=== PATIENT | male | born 1960 | race Caucasian/White ===

== ENCOUNTER 2022-05-27 06:14 | Day surgery (SDC) | payer OTHER ==
[2022-05-20 14:18] VITALS: BMI 28.5
[2022-05-27] MEDS ORDERED: PHENYLEPHRINE 2.5% OPTHALMIC DROP 2ML BOTTLE ONE (06:42)
[2022-05-27] MEDS ORDERED: TROPICAMIDE 1% OPHTH SOLN 15 ML BOTTLE ONE (06:42)
[2022-05-27] MEDS: PHENYLEPHRINE 2.5% OPHTH SOLN 15 ML BOTTLE OD SCH ×3 (07:00→07:10)
[2022-05-27] MEDS: OFLOXACIN 0.3% OPHTHALMIC SOLUTION 5 ML BOTTLE OD SCH ×3 (07:00→07:10)
[2022-05-27] MEDS: CYCLOPENTOLATE HCL 1% OPHTH SOLN 2 ML BOTTLE OD SCH ×3 (07:00→07:10)
[2022-05-27] MEDS: TROPICAMIDE 1% OPHTH SOLN 15 ML BOTTLE OD SCH ×3 (07:00→07:10)
[2022-05-27] MEDS: KETOROLAC TROMETHAMINE 0.5% EYE DROP 1 DROP DROPS OD SCH ×3 (07:00→07:10)
[2022-05-27] MEDS ORDERED: EPINEPHrine/PF 1 MG/1 ML (1:1,000) AMPULE ONE (07:09)
[2022-05-27] MEDS ORDERED: BETAXOLOL HCL 0.25% OPHTHALMIC 10 ML DROPSBTL ONE (07:09)
[2022-05-27] MEDS ORDERED: EPI-SHUGARCAINE (EPINEPHRINE 0.025% & LIDOCAINE-PF 0.75%) 4ML ONE (07:09)
[2022-05-27] MEDS ORDERED: BACITRACIN/POLYMYXIN OPH OINT 3.5 GM TUBE ONE (07:09)
[2022-05-27] MEDS ORDERED: PHENYLEPHRINE/KETOROLAC 4 ML VIAL IO ONE (07:09)
[2022-05-27] MEDS ORDERED: NEO/POLYMYX B SULF/DEXAMETH OPHTHALMIC 5ML BOTTLE ONE (07:10)
[2022-05-27] MEDS ORDERED: POVIDONE-IODINE 5% OPHTHALMIC PREP 30 ML SOLUTION ONE (07:10)
[2022-05-27] MEDS ORDERED: ACETYLCHOLINE 1:100 INTRA-OCUL 20 MG/2 ML KIT ONE (07:10)
[2022-05-27] MEDS ORDERED: TRYPAN BLUE 0.5 ML DISP.SYRIN ONE (07:10)
[2022-05-27] MEDS ORDERED: TETRACAINE 0.5% OPHTH SOLN 2 ML BOTTLE ONE (07:10)
[2022-05-27 07:17] VITALS: RESP 18
[2022-05-27] MEDS ORDERED: MIDAZOLAM HCL 2 MG/2 ML SINGLE DOSE VIAL ONE (07:56)
[2022-05-27] MEDS ORDERED: ACETAMINOPHEN 325 MG TABLET (FP) PO PRN (08:20)
[2022-05-27 08:30] VITALS: TEMP 97.7
[2022-05-27 08:49] VITALS: BP 140/80; PULSE 80
== END 2022-05-27 08:53 | disposition home or self-care (01) ==
LOC: FASU 06:14
PROVIDERS: ATTEND Ophthalmology
PROC: 08RJ3JZ Replacement of Right Lens with Synthetic Substitute, Percutaneous Approach (ICD-10-PCS; principal; 2022-05-27 08:01)
DX: H25.11 Age-related nuclear cataract, right eye (principal)
CPT/HCPCS: 66984; V2632; 82962; J1097

== ENCOUNTER → 2022-06-10 | Day surgery (SDC) | payer OTHER ==
[2022-06-05 09:21] VITALS: BMI 28.5
[~2022-06-10] MED LIST: ACETYLCHOLINE 1:100 INTRA-OCUL 20 MG/2 ML KIT ONE; BACITRACIN/POLYMYXIN OPH OINT 3.5 GM TUBE ONE; BETAXOLOL HCL 0.25% OPHTHALMIC 10 ML DROPSBTL ONE; BSS (NA/CA/MG/K) BALANCED SALT SOLUTION OPHTH SOLN 15 ML BOTTLE ONE; CYCLOPENTOLATE HCL 1% OPHTH SOLN 2 ML BOTTLE ONE; CYCLOPENTOLATE HCL 1% OPHTH SOLN 2 ML BOTTLE OS SCH; EPI-SHUGARCAINE (EPINEPHRINE 0.025% & LIDOCAINE-PF 0.75%) 4ML ONE; EPINEPHrine/PF 1 MG/1 ML (1:1,000) AMPULE ONE; KETOROLAC TROMETHAMINE 0.5% EYE DROP 1 DROP DROPS ONE; KETOROLAC TROMETHAMINE 0.5% EYE DROP 1 DROP DROPS OS SCH; NEO/POLYMYX B SULF/DEXAMETH OPHTHALMIC 5ML BOTTLE ONE; OFLOXACIN 0.3% OPHTHALMIC SOLUTION 5 ML BOTTLE ONE; OFLOXACIN 0.3% OPHTHALMIC SOLUTION 5 ML BOTTLE OS SCH; PHENYLEPHRINE 2.5% OPHTH SOLN 15 ML BOTTLE OS SCH; PHENYLEPHRINE 2.5% OPTHALMIC DROP 2ML BOTTLE ONE; PHENYLEPHRINE/KETOROLAC 4 ML VIAL IO ONE; POVIDONE-IODINE 5% OPHTHALMIC PREP 30 ML SOLUTION ONE; TETRACAINE 0.5% OPHTH SOLN 2 ML BOTTLE ONE; TROPICAMIDE 1% OPHTH SOLN 15 ML BOTTLE ONE; TROPICAMIDE 1% OPHTH SOLN 15 ML BOTTLE OS SCH; TRYPAN BLUE 0.5 ML DISP.SYRIN ONE
[2022-06-10 06:43] VITALS: BP 183/85; PULSE 87; RESP 18; TEMP 97.4
== END | disposition home or self-care (01) ==
LOC: FASU 06:15
PROVIDERS: ATTEND Ophthalmology
PROC: 08RK3JZ Replacement of Left Lens with Synthetic Substitute, Percutaneous Approach (ICD-10-PCS; principal; 2022-06-10)
DX: Z53.09 Procedure and treatment not carried out because of other contraindication (principal)
CPT/HCPCS: 36415; 82947; 82962; J1097

== ENCOUNTER 2022-06-17 06:42 | Day surgery (SDC) | payer OTHER ==
[2022-06-14 08:28] VITALS: BMI 28.5
[2022-06-17] MEDS ORDERED: OFLOXACIN 0.3% OPHTHALMIC SOLUTION 5 ML BOTTLE ONE (07:14)
[2022-06-17] MEDS ORDERED: TROPICAMIDE 1% OPHTH SOLN 15 ML BOTTLE ONE (07:14)
[2022-06-17] MEDS ORDERED: CYCLOPENTOLATE HCL 1% OPHTH SOLN 2 ML BOTTLE ONE (07:15)
[2022-06-17] MEDS ORDERED: KETOROLAC TROMETHAMINE 0.5% EYE DROP 1 DROP DROPS ONE (07:15)
[2022-06-17] MEDS ORDERED: PHENYLEPHRINE 2.5% OPTHALMIC DROP 2ML BOTTLE ONE (07:15)
[2022-06-17] MEDS ORDERED: POVIDONE-IODINE 5% OPHTHALMIC PREP 30 ML SOLUTION ONE (07:18)
[2022-06-17] MEDS ORDERED: BACITRACIN/POLYMYXIN OPH OINT 3.5 GM TUBE ONE (07:18)
[2022-06-17] MEDS ORDERED: EPI-SHUGARCAINE (EPINEPHRINE 0.025% & LIDOCAINE-PF 0.75%) 4ML ONE (07:18)
[2022-06-17] MEDS ORDERED: TETRACAINE 0.5% OPHTH SOLN 2 ML BOTTLE ONE (07:18)
[2022-06-17] MEDS ORDERED: BETAXOLOL HCL 0.25% OPHTHALMIC 10 ML DROPSBTL ONE (07:18)
[2022-06-17] MEDS ORDERED: NEO/POLYMYX B SULF/DEXAMETH OPHTHALMIC 5ML BOTTLE ONE (07:18)
[2022-06-17] MEDS: OFLOXACIN 0.3% OPHTHALMIC SOLUTION 5 ML BOTTLE OS SCH ×3 (07:35→07:45)
[2022-06-17] MEDS: TROPICAMIDE 1% OPHTH SOLN 15 ML BOTTLE OS SCH ×3 (07:35→07:45)
[2022-06-17] MEDS: PHENYLEPHRINE 2.5% OPHTH SOLN 15 ML BOTTLE OS SCH ×3 (07:35→07:45)
[2022-06-17] MEDS: KETOROLAC TROMETHAMINE 0.5% EYE DROP 1 DROP DROPS OS SCH ×3 (07:35→07:45)
[2022-06-17] MEDS: CYCLOPENTOLATE HCL 1% OPHTH SOLN 2 ML BOTTLE OS SCH ×3 (07:35→07:45)
[2022-06-17] MEDS ORDERED: MIDAZOLAM HCL 2 MG/2 ML SINGLE DOSE VIAL ONE (08:28)
[2022-06-17] MEDS ORDERED: ACETAMINOPHEN 325 MG TABLET (FP) PO PRN (08:58)
[2022-06-17 09:12] VITALS: RESP 18
[2022-06-17 09:56] VITALS: BP 121/71; PULSE 68; TEMP 98
== END 2022-06-17 09:50 | disposition home or self-care (01) ==
LOC: FASU 06:42
PROVIDERS: ATTEND Ophthalmology
PROC: 08RK3JZ Replacement of Left Lens with Synthetic Substitute, Percutaneous Approach (ICD-10-PCS; principal; 2022-06-17 08:39)
DX: H25.12 Age-related nuclear cataract, left eye (principal)
CPT/HCPCS: 66984; V2632; 82962